=== PATIENT | male | born 1955 | race Hispanic/Latino ===

== ENCOUNTER 2017-03-26 14:21 | Outpatient (CLI) | payer OTHER ==
--- NOTE | 2017-03-26 15:03 | Ultrasound Report ---
ULTRASOUND SOFT TISSUE HEAD AND NECK INDICATION: Soft palpable left neck mass with recent enlargement. COMPARISON: None similar at this institution. FINDINGS: Longitudinal and transverse grayscale and color flow sonographic evaluation of the area of concern along the left neck demonstrates a 5.2 x 1.1 x 4.1 cm echogenic mass without significant demonstrable hypervascularity. CONCLUSION: Sonographic findings most in keeping with a left neck lipoma, as described. Please correlate. Thank you for the opportunity to participate in this patient's care.
== END 2017-03-26 14:22 | disposition home or self-care (01) ==
LOC: US 14:21
PROVIDERS: ATTEND Surgery
DX: R22.1 Localized swelling, mass and lump, neck (principal)
CPT/HCPCS: 76536

== ENCOUNTER 2017-04-14 11:36 | Day surgery (SDC) | payer OTHER ==
[~2017-04-14 11:36] MED LIST: DILAUDID IV PRN; NACL 0.9% 1000 ML 1,000 ML IV SCH; PEPCID PO NR; VERSED IV NR; ZOFRAN IV PRN; ceFAZolin 2 GM in NACL 0.9% 100 ML IV ONE
[2017-04-14] MEDS ORDERED: XYLOCAINE MPF 2% ONE (12:30)
--- NOTE | 2017-04-14 12:44 | Anesthesia Consultation ---
Anesthesia Consult and Med Hx Date of service: 04/14/17 - Airway Anesthetic Teeth Evaluation: Dentures (upper and lower) ROM Head & Neck: Adequate Mental/Hyoid Distance: Adequate Mallampati Class: Class II Intubation Access Assessment: Probably Good - Pulmonary Exam CTA: Yes - Cardiac Exam Cardiac Exam: RRR - Pre-Operative Health Status ASA Pre-Surgery Classification: ASA2 Proposed Anesthetic Plan: MAC - Pulmonary Hx Smoking: Yes (CIGARETTES 1 PPD X 47 YRS) Hx Asthma: Yes (12 YRS AGO) - Other Systems Hx Cancer: No
[2017-04-14] MEDS ORDERED: XYLOCAINE 1%/ EPI 1:100,000 INFILTRATI ONE ×3 (12:45→13:39)
[2017-04-14] MEDS ORDERED: MARCAINE 0.25% INFILTRATI ONE ×3 (12:45→13:40)
--- NOTE | 2017-04-14 12:45 | Anesthesia Day of Surgery ---
Anesthesia Day of Surgery - Day of Surgery Patient Examined: Yes Patient H&P Reviewed: Yes Patient is NPO: Yes
[2017-04-14] MEDS ORDERED: PEPCID PO NR (13:00)
[2017-04-14] MEDS ORDERED: DIPRIVAN 10 MG/ML IV ONE (13:05)
[2017-04-14] MEDS ORDERED: SUBLIMAZE ONE (13:05)
[2017-04-14] MEDS ORDERED: VERSED ONE (13:16)
[2017-04-14] MEDS ORDERED: NACL 0.9% IR ONE (13:40)
[2017-04-14] MEDS ORDERED: ZOFRAN ONE (13:49)
--- NOTE | 2017-04-14 13:59 | Post Operative Note ---
Pre-op diagnosis: Soft tissue mass left neck Post-op diagnosis: same Findings: Lipoma 5 cmx 4 cm Procedure: Excision STM Left neck Anesthesia: MAC Surgeon: CONSUELO RIVERA Estimated blood loss: none Pathology: list (Lipoma) Specimen disposition: to lab Condition: stable Disposition: PACU
--- NOTE | 2017-04-14 14:01 | Discharge Summary ---
Short Stay Discharge Plan Weight Bearing Status: Full Weight Bearing Diet: regular Wound: open to air Follow up with: PRIMARY CARE, [Primary Care Provider] - 7 Days Prescriptions: HYDROcodone/APAP 5-325 [S[place] 5-325 mg TAB] 1 each PO Q4HR PRN #20 tablet PRN Reason: Pain
--- NOTE | 2017-04-14 14:29 | Post Anesthesia Evaluation ---
- Post Anesthesia Evaluation Patient Participated: Yes Airway Patent: Yes Stable Respiratory Function: Yes Nausea/Vomiting: No Temp > 96.8F: Yes Pain Manageable: Yes Adequeate Hydration: Yes Anesthesia Complications: No Block Receding Appropriately: Not Applicable Patient on Ventilator: No
[2017-04-14 15:44] VITALS: BP 112/65
--- NOTE | 2017-04-14 20:13 | Operative Report ---
PREOPERATIVE DIAGNOSIS: Soft tissue mass, left neck. POSTOPERATIVE DIAGNOSIS: Subcutaneous lipoma, left neck. OPERATIVE PROCEDURE: Excision of soft tissue mass. ANESTHESIA: IV sedation and local 1% Xylocaine with 0.25% Marcaine. INDICATIONS: A 62-year-old male patient presenting with a visible and palpable mass in the left mid neck and ultrasound confirms this to be a lipoma. FINDINGS: A subcutaneous lipoma multilobulated measuring 5 x 3 cm. DESCRIPTION OF PROCEDURE: After satisfactory IV sedation left neck was prepped and draped. A crease incision was made after infiltrating the area adequately with local anesthetic. Subcutaneous tissue was divided. The lipoma was completely removed. Minimal bleeding was controlled by cautery. The subdermal tissue approximated with 3-0 Vicryl and skin with 4-0 Monocryl sutures. There was minimal blood loss. He tolerated the procedure well. JOB# [id number] HAILEY/WENDI
== END 2017-04-14 15:23 | disposition home or self-care (01) ==
LOC: OR 11:36
PROVIDERS: ATTEND Surgery
DX: D17.0 Benign lipomatous neoplasm of skin and subcutaneous tissue of head, face and neck (principal); F41.9 Anxiety disorder, unspecified; J45.909 Unspecified asthma, uncomplicated; F17.210 Nicotine dependence, cigarettes, uncomplicated; Z98.890 Other specified postprocedural states; Z72.89 Other problems related to lifestyle
CPT/HCPCS: 21552; 88307; 88342; J2250; J2405; J2704; J3010; J7030